=== PATIENT | female | born 1950 | race Caucasian/White ===

== ENCOUNTER 2020-07-21 11:06 | Emergency (ER) | payer OTHER ==
[~2020-07-21] VITALS: Ht 160 cm; Wt 77.1 kg
[2020-07-21] MEDS ORDERED: LISINOPRIL20 MG PO (11:15)
[2020-07-21 11:25] LABS: ABSOLUTE BASOPHILS 0.1 thou/uL (0.0-0.2); ABSOLUTE EOSINOPHILS 0.1 thou/uL (0.0-0.7); ABSOLUTE LYMPHOCYTES 2.3 thou/uL (0.8-5.3); ABSOLUTE MONOCYTES 0.5 thou/uL (0.0-1.2); ABSOLUTE NEUTROPHILS 4.6 thou/uL (1.6-8.1); BASOPHILS 0.8 %; EOSINOPHILS 1.2 %; HEMATOCRIT 42.9 % (37.0-47.0); HEMOGLOBIN 14.5 gm/dL (12.0-15.0); LYMPHOCYTES 30.9 %; MCH 30.9 pg (26.0-34.0); MCHC 33.7 g/dL (28.0-37.0); MCV 91.9 fL (80.0-100.0); MONOCYTES 6.9 %; MPV 8.4 fl. (7.2-11.1); NUCLEATED RBCS 0 /100WBC; PLATELET COUNT* 278 thou/uL (150-400); POLYS 60.2 %; RBC 4.67 mil/uL (4.20-5.00); RDW-CV 13.9 % (10.5-14.5); WBC 7.6 thou/uL (4.0-11.0)
[2020-07-21 11:34] LABS: CALCIUM 9.6 mg/dL (8.5-10.1); CREATININE 0.8 mg/dL (0.6-1.3); POTASSIUM 4.4 mmol/L (3.5-5.1)
[2020-07-21 11:38] LABS: ALBUMIN 3.8 g/dL (3.4-5.0); TOTAL BILIRUBIN 0.4 mg/dL (<0.1-1.0); TOTAL PROTEIN 7.9 g/dL (6.4-8.2)
[2020-07-21 11:39] LABS: APTT 26.1 Seconds (25.0-31.3); PROTIME 10.2 Seconds (9.20-11.50)
[2020-07-21 13:04] VITALS: BP 124/69
--- NOTE | 2020-07-21 16:13 | EKG ---
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 07/21/20 1613 1112 1112 Nilay Truong MD, [facility] /EPI
== END 2020-07-21 13:05 | disposition home or self-care (01) ==
LOC: M.ERS 11:06
PROVIDERS: Family Medicine
DX: R20.2 Paresthesia of skin (principal); Z88.1 Allergy status to other antibiotic agents; Z90.710 Acquired absence of both cervix and uterus; Z79.899 Other long term (current) drug therapy

== ENCOUNTER 2020-08-03 14:08 | Inpatient (IN) | payer OTHER ==
[~2020-08-03] VITALS: Ht 160 cm; Wt 77.0 kg
--- NOTE | ~2020-08-03 | CON ---
[address] [address] CONSULTATION Name: JUANITO LIMON Room: [address] IN M.R.#: [id number] Admission: 08/03/20 Attend Phys: Garfield Gracia Discharge: Date of : 52 Report #: [id number] THIS REPORT FOR: cc: Dayana Adorno MD, Lin W. MD Khosla, Parveen K. MD ~ DOC #: [id number] Sin Davalos MD DATE OF CONSULTATION: 08/03/2020 HISTORY OF PRESENT ILLNESS: This is a 69-year-old female patient, whose records were reviewed, and I talked to the nurses. The patient has an unusual symptom, where she is having generalized weakness, which is more predominant on the right side. This started about 2 weeks ago. She does have some speech difficulty. She came to Emergency Room and a CT scan of the head was done that was interpreted as normal, but looking at the films, there may have been slight abnormality even at that time, and a CT scan was done today again that definitely showed a stroke in at least a left basal ganglion area and probably another one in the frontal area. She never had any stroke. She does have hypertension, she takes medication for that, is not sure how control her hypertension is. REVIEW OF SYSTEMS: Positive for hypertension. She has a strong family history of atherosclerotic disease with sisters having endarterectomy and a brother having myocardial infarction. She does have some hypothyroidism. She is not complaining of any new eye, ENT, cardiac, respiratory, GI, , musculoskeletal, constitutional, dermatological, hematological, psychiatric, throat, allergic symptom associated with present symptomatology. PAST MEDICAL HISTORY: Negative for stroke. FAMILY HISTORY: Strongly positive for atherosclerotic disease. SOCIAL HISTORY: She does not smoke or drink any alcohol. PHYSICAL EXAMINATION: NEUROLOGIC: The patient's examination indicates that she is alert, responsive. Her speech is slurred, but she is able to express herself and her comprehension is intact. Cranial nerve examination 2-12 looks unremarkable. There is not any prominent facial palsy, but mild facial palsy may be there. She is slightly weak on the right side as compared to the left side, but her sensation looks intact, like position sense, she does think touch feels different. Tone looks symmetrical. The patient is able to ambulate, but she feels weak. Hearing and vision are adequate. EXTREMITIES: Her pulses are palpable. She has no edema, [place] [address] CONSULTATION Name: JUANITO LIMON Room: [address]#: [id number] Admission: 08/03/20 Attend Phys: Garfield Gracia Discharge: Date of : 52 Report #: [id number] CARDIAC: Examination appears unremarkable. PULMONARY: No respiratory difficulty was noticed. GENERAL: She is a reasonably well-developed individual. VITAL SIGNS: Last blood pressure is 145/79, pulse is 79, temperature is 98.6. LABORATORY DATA: Indicates a normal white count and a normal platelet count. MEDICATIONS: She tells me she was not taking any Plavix at home, but she was taking aspirin at home, which was a baby aspirin. IMAGING STUDIES: A CT was reviewed and I reviewed the films and the report is summarized as above. IMPRESSION: The patient's clinical presentation is consistent with a left hemispheric cerebrovascular accident. This happened 2 weeks ago, so she is not an intervention candidate. I got a CT angio report after talking to her the indication, potential complication and alternative. That films and the reports are not available. RECOMMENDATIONS: 1. I discussed with her that we will be starting her on a combination of aspirin and Plavix. 2. We will await the result of CT angio. 3. I will give her some fluid until the CT angio report becomes available. 4. I will suggest permissive hypertension for the time being. 5. Closely watch her for any deterioration because these lacunar CVAs sometime continue to deteriorate in spite of treatment. All of it was discussed with the patient in detail. Thank you very much for this referral. We will follow the patient along with you. MD TANIA Lam/MANUEL By: [id number] Davalos MD /nt
[~2020-08-03 14:08] MED LIST: LISINOPRIL20 MG PO
[2020-08-03 14:15] VITALS: BP 141/91
[2020-08-03 15:06] LABS: URINE BILIRUBIN NEGATIVE (Negative); URINE BLOOD NEGATIVE (Negative); URINE CLARITY CLEAR; URINE COLOR YELLOW; URINE GLUCOSE-RANDOM NEGATIVE (Negative); URINE KETONES NEGATIVE (Negative); URINE NITRITE-REFLEX NEGATIVE (Negative); URINE PROTEIN NEGATIVE (Negative); URINE SPECIFIC GRAVITY 1.015 (1.005-1.030); URINE UROBILINOGEN 0.2 E.U./dl (0.2-1.0)
[2020-08-03 15:08] LABS: URINE LEUKOCYTES-REFLEX 2+ (Negative)
[2020-08-03 15:17] LABS: BACTERIA-REFLEX 1-9 Few /HPF (None Seen); CASTS None Seen /LPF (None Seen); CRYSTALS None Seen /LPF (None Seen); MUCUS None Seen strn/LPF (None Seen); SQUAMOUS >10 Many /LPF (0-3); URINE WBC-REFLEX 6-15 Few /HPF (0-5)
[2020-08-03 15:18] LABS: ABSOLUTE EOSINOPHILS 0.1 thou/uL (0.0-0.7); ABSOLUTE LYMPHOCYTES 2.3 thou/uL (0.8-5.3); ABSOLUTE MONOCYTES 0.5 thou/uL (0.0-1.2); ABSOLUTE NEUTROPHILS 5.6 thou/uL (1.6-8.1); BASOPHILS 0.5 %; EOSINOPHILS 1.5 %; HEMATOCRIT 46.4 % (37.0-47.0); HEMOGLOBIN 15.3 gm/dL (12.0-15.0); LYMPHOCYTES 27.2 %; MCH 30.6 pg (26.0-34.0); MCHC 33.1 g/dL (28.0-37.0); MCV 92.5 fL (80.0-100.0); MONOCYTES 5.9 %; MPV 8.1 fl. (7.2-11.1); NUCLEATED RBCS 0 /100WBC; PLATELET COUNT* 319 thou/uL (150-400); POLYS 64.9 %; RBC 5.01 mil/uL (4.20-5.00); RDW-CV 14.1 % (10.5-14.5); WBC 8.6 thou/uL (4.0-11.0)
[2020-08-03 15:18] LABS: URINE RBC None Seen /HPF (0-2)
[2020-08-03 15:28] LABS: CALCIUM 9.5 mg/dL (8.5-10.1); CREATININE 0.8 mg/dL (0.6-1.3); POTASSIUM 4.4 mmol/L (3.5-5.1)
[2020-08-03 15:38] LABS: ALBUMIN 3.9 g/dL (3.4-5.0); TOTAL BILIRUBIN 0.3 mg/dL (<0.1-1.0); TOTAL PROTEIN 7.9 g/dL (6.4-8.2)
[2020-08-03] MEDS ORDERED: LEVO-T50 MCG PO (15:53)
[2020-08-03] MEDS ORDERED: DORZOLAMIDE-TI1 EACH EA. EYE (15:54)
[2020-08-03] MEDS ORDERED: LUMIGAN2.5 M1 EA. EYE (15:55)
[2020-08-03] MEDS ORDERED: OMEGA-3 FISH1200 MG PO (15:55)
[2020-08-03] MEDS ORDERED: GLUCOSAMINE CH1 EA10 PO (15:56)
[2020-08-03] MEDS ORDERED: NATURAL LUTEIN20 MG PO (15:57)
[2020-08-03] MEDS ORDERED: CALCIUM CITRAT250 MG PO (15:57)
[2020-08-03] MEDS ORDERED: MAGNESIUM250 M1 PO (15:57)
[2020-08-03] MEDS ORDERED: CO Q-10200 MG PO (15:58)
[2020-08-03] MEDS ORDERED: CRANBERRY500 M2 PO (15:58)
[2020-08-03] MEDS ORDERED: D3-200050 MCG PO (15:59)
[2020-08-03 18:04] VITALS: BP 164/101
[2020-08-03 18:55] VITALS: BP 145/79
[2020-08-03 20:01] VITALS: BP 133/67
[2020-08-04 01:12] VITALS: BP 101/57
[2020-08-04 05:21] LABS: ALBUMIN 3.5 g/dL (3.4-5.0); ALKALINE PHOSPHATASE 56 U/L (46-116); ANION GAP 10 mmol/L (7-16); BUN 12 mg/dL (7-18); CALCIUM 9.3 mg/dL (8.5-10.1); CHLORIDE 104 mmol/L (98-107); CHOLESTEROL 230 mg/dL (<200); CO2 25 mmol/L (21-32); CREATININE 0.7 mg/dL (0.6-1.3); GLUCOSE 77 mg/dL (70-99); HDL CHOLESTEROL 42 mg/dL (>40); LDL CHOLESTEROL 173 mg/dL (<100); POTASSIUM 3.7 mmol/L (3.5-5.1); SGOT 12 U/L (15-37); SGPT 32 U/L (30-65); SODIUM 139 mmol/L (136-145); TC:HDL 5.5 Ratio (Not establshd); TOTAL BILIRUBIN 0.2 mg/dL (<0.1-1.0); TRIGLYCERIDE 75 mg/dL (<150); VLDL 15 mg/dL (<40)
[2020-08-04 05:24] LABS: SERUM ASSESSMENT CLEAR
[2020-08-04 05:51] VITALS: BP 133/86
[2020-08-04 08:10] VITALS: BP 121/72
[2020-08-04 11:52] VITALS: BP 136/77
--- NOTE | 2020-08-04 12:09 | EKG ---
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: : 1950 Requested By: Pj Armstrong Order Number: [id number] MD: Nikhil Tan Measurements Intervals [place] Rate: 70 P: -4 NV: 171 QRS: -28 QRSD: 84 T: 39 QT: 379 QTc: 409 Interpretive Statements Sinus rhythm Consider right atrial enlargement Abnormal R-wave progression, early transition Inferior infarct, old Compared to ECG 07/21/2020 11:12:31 Myocardial infarct finding now present Electronically Signed On 08-04-2020 12:09:36 CDT by Nikhil Tan [email or web address] <ELECTRONICALLY SIGNED> By: Nikhil Tan MD, FACC 08/04/20 1209 1437 1437 Nikhil Tan MD, FACC /EPI
--- NOTE | 2020-08-04 15:52 | 2DMMODE ---
[place] [address] 2 D/M-MODE ECHOCARDIOGRAM Name: JUANITO LIMON Room: [address] Sky#: [id number] Admission: 08/03/20 Attend Phys: Neeraj Dover Discharge: Date of : 52 Date of Service: 08/04/20 1552 Report #: [id number] THIS REPORT FOR: cc: Dayana Adorno MD, Lin W. MD Liston, Michael J. MD [facility]ED WITH [facility] ~ APPROVED REPORT Study performed: 08/04/2020 10:56:37 EXAM: Comprehensive 2D, Doppler, and color-flow Echocardiogram Patient Location: In-Patient Room #: [facility] Status: routine BSA: 1.80 HR: 76 bpm BP: 133/86 mmHg Rhythm: NSR Other Information Study Quality: Good Indications CVA/TIA Echo Enhancing Agent Indication: Rule out Shunt Agent(s) / Amount(s) Used: Agitated Saline 10 cc 2D Dimensions IVSd: 8.49 (7-11mm) LVOT Diam: 19.47 (18-24mm) LVDd: 37.78 mm PWd: 8.50 (7-11mm) Ascending Ao: 28.75 (22-36mm) LVDs: 17.68 (25-40mm) Aortic Root: 32.52 mm Volumes Left Atrial Volume (Systole) LA ESV Index: 24.40 mL/m2 Aortic Valve AoV Peak Flash.: 1.69 m/s AO Peak Gr.: 11.38 mmHg LVOT Max P.57 mmHg AO Mean Gr.: 5.78 mmHg LVOT Mean P.16 [place] [address] 2 D/M-MODE ECHOCARDIOGRAM Name: JUANITO LIMON Room: [address] MEstevanREstevan#: [id number] Admission: 08/03/20 Attend Phys: Neeraj Dover Discharge: Date of : 52 Date of Service: 08/04/20 1552 Report #: [id number] LVOT Max V: 1.46 m/s AO V2 VTI: 29.07 cm LVOT Mean V: 0.93 m/s TANIA (VTI): 3.01 cm2 LVOT V1 VTI: 29.36 cm Mitral Valve E/A Ratio: 0.88 MV Decel. Time: 231.02 ms MV E Max Flash.: 0.71 m/s MV PHT: 67.00 ms MVA (PHT): 3.28 cm2 TDI E/Lateral E': 7.89 E/Medial E': 7.89 Medial E' Flash.: 0.09 m/s Lateral E' Flash.: 0.09 m/s Pulmonary Valve PV Peak Flash.: 1.15 m/s PV Peak Gr.: 5.25 mmHg Tricuspid Valve RAP Estimate: 5.00 mmHg TR Peak Gr.: 20.52 mmHg RVSP: 25.00 mmHg PA Pressure: 25.00 mmHg Left Ventricle The left ventricle is normal size. There is normal LV segmental wall motion. There is normal left ventricular wall thickness. Left ventricular systolic function is normal. LVEF is 65-70%. Grade I - abnormal relaxation pattern. Right Ventricle The right ventricle is normal size. The right ventricular systolic function is normal. Atria The left atrium size is normal. Interatrial septum is intact without evidence of ASD or PFO. The right atrium size is normal. Aortic Valve Mild aortic valve sclerosis. No aortic regurgitation is present. There is no aortic valvular stenosis. Mitral Valve The mitral valve is normal in structure. There is no mitral valve regurgitation noted. No evidence [place] [address] 2 D/M-MODE ECHOCARDIOGRAM Name: JUANITO LIMON Room: [address]R.#: [id number] Admission: 08/03/20 Attend Phys: Neeraj Dover Discharge: Date of : 52 Date of Service: 08/04/20 1552 Report #: [id number] Tricuspid Valve The tricuspid valve is normal in structure. Mild tricuspid regurgitation. No pulmonary hypertension. Pulmonic Valve The pulmonary valve is normal in structure. There is no pulmonic valvular regurgitation. Great Vessels The aortic root is normal in size. IVC is normal in size and collapses >50% with inspiration. Pericardium There is no pericardial effusion. <Conclusion> The left ventricle is normal size. There is normal left ventricular wall thickness. Left ventricular systolic function is normal. LVEF is 65-70%. Grade I - abnormal relaxation pattern. Interatrial septum is intact without evidence of ASD or PFO. Mild aortic valve sclerosis. Mild tricuspid regurgitation. No pulmonary hypertension. IVC is normal in size and collapses >50% with inspiration. <ELECTRONICALLY SIGNED> By: Nikhil Tan MD, FACC 08/04/20 1552 155 155 Nikhil Tan MD, FACC /INF
[2020-08-04 16:35] VITALS: BP 194/93
[2020-08-04 20:00] VITALS: BP 160/81
[2020-08-05] VITALS: BP 165/89
[2020-08-05 00:40] LABS: HEMATOCRIT 41.9 % (37.0-47.0); HEMOGLOBIN 14.3 gm/dL (12.0-15.0); MCH 31.5 pg (26.0-34.0); MCHC 34.2 g/dL (28.0-37.0); MCV 92.2 fL (80.0-100.0); MPV 8.3 fl. (7.2-11.1); RBC 4.54 mil/uL (4.20-5.00); WBC 8.8 thou/uL (4.0-11.0)
[2020-08-05 00:49] LABS: CALCIUM 9.4 mg/dL (8.5-10.1); CREATININE 0.6 mg/dL (0.6-1.3)
[2020-08-05 02:06] LABS: GLYCOHEMOGLOBIN (HGB A1C) 5.5 % (4.8-5.6)
[2020-08-05 04:00] VITALS: BP 137/76
[2020-08-05 07:30] VITALS: BP 168/83
[2020-08-05] MEDS ORDERED: CLOPIDOGREL75 MG PO (10:14)
[2020-08-05] MEDS ORDERED: ATORVASTATIN CA80 MG PO (10:15)
[2020-08-05 10:44] VITALS: BP 168/83
[2020-08-05 11:46] VITALS: BP 155/78
[2020-08-05 13:39] VITALS: BP 168/83
--- NOTE | 2020-08-05 16:00 | CON ---
[address] [address] CONSULTATION Name: JUANITO LIMON Room: [address] Jamilah Swanson#: [id number] Admission: 08/03/20 Attend Phys: Garfield Gracia Discharge: 08/05/20 Date of : 52 Report #: [id number] THIS REPORT FOR: cc: Dayana Adorno MD, Lin W. MD Blick, David R. MD [facility] ~ DOC #: [id number] cc: MD Nilay Box MD [facility] DATE OF CONSULTATION: 08/05/2020 HISTORY OF PRESENT ILLNESS: The patient is a 69-year-old white female who I was asked to see in the hospital today after she is noted to have an abnormal ECG. The patient has no previous history of heart disease. She does not exercise on a regular basis. She has had no previous cardiac evaluation. She was doing well until 2 weeks ago, she felt some clumsiness of her right arm and leg and some numbness. She actually came to the emergency room here at [facility], evaluated and sent home. Since that time, she continues to have some weakness of the arm and leg. She has felt very weak. She finally came to the emergency room 2 days ago and was admitted for further evaluation and treatment. She denies any blurred vision, difficulty swallowing. She did have some numbness of the right side of her face. She denies a history of chest pain, shortness of breath, palpitations, syncope, peripheral edema. She has no history of heart murmur. PAST MEDICAL HISTORY: She has had a hysterectomy. She has a history of hypertension. No history of diabetes or hyperlipidemia. MEDICATIONS: On admission include lisinopril. ALLERGIES: SHE HAS INTOLERANCE TO AMOXICILLIN. FAMILY HISTORY: Her mother and sister have had carotid endarterectomy. Her brother had coronary bypass surgery. Mother and father both had pacemakers. SOCIAL HISTORY: She is . She and her live in [place]. 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 No smoking, alcohol abuse. REVIEW OF SYSTEMS: No history of asthma, liver disease, kidney disease, cancer, psychiatric illness, chronic skin condition. PHYSICAL EXAMINATION: GENERAL: Revealed a middle-aged female, lying in bed. [place] [address] CONSULTATION Name: JUANITO LIMON Room: [address] Jamilah Swanson#: [id number] Admission: 08/03/20 Attend Phys: Garfield Gracia Discharge: 08/05/20 Date of : 52 Report #: [id number] VITAL SIGNS: She had a blood pressure of 130/80, pulse 70. She is afebrile. HEENT: She was anicteric. Conjunctivae pink. Mucosa is moist. NECK: Veins not distended. No carotid bruits. Neck is supple. CHEST: Clear to auscultation. CARDIAC: Regular rate and rhythm without murmur. ABDOMEN: Soft. EXTREMITIES: Had no edema. Dorsalis pedis pulse 3+ bilaterally. SKIN: Cool and dry. NEUROLOGIC: Nonfocal. LYMPHATIC: No adenopathy. PSYCHIATRIC: Mood is appropriate. RADIOLOGICAL DATA: Her ECG on admission showed a sinus rhythm with early transition. Her workup so far included a portable chest x-ray that showed normal heart size, clear lung vazquez. She had an MRI of the head without contrast that showed lacunar type infarction in the left posterior area. She had a CTA of the head and neck that showed no significant stenosis. LABORATORY DATA: Sodium 140, creatinine 0.6, glucose 80. Liver function studies were normal. Troponin 0.06. BNP 11. Cholesterol 230, triglycerides 75, HDL 42, LDL 173. Her white blood cell count 8.8, hemoglobin 14.3. Her COVID antigen stat test was negative. Urinalysis is negative for protein. IMPRESSION AND RECOMMENDATIONS: 1. Cerebral infarction. The patient has been seen by Neurology. 2. Hypertension. The patient is on MILLIE inhibitor. 3. Suspect heterozygous hypercholesterolemia, recommend a statin drug. 4. Snoring at night. Consider sleep apnea. Nilay Truong MD [facility] SELENE/LESLIE <ELECTRONICALLY SIGNED> By: Nilay Truong MD, [facility] 08/05/20 1600 0844 1038David Roman Truong MD, [facility] /nt
[2020-08-05 18:06] LABS: ANA INTERPRETATION Negative (())
== END 2020-08-05 13:45 | disposition home or self-care (01) | DRG 65 ==
LOC: M.ERS 14:08 → M.TBA-ER 17:20 → M.2W 17:20
PROVIDERS: Emergency Medicine Emergency Medical Services; Psychiatry & Neurology Neuromuscular Medicine; ADMIT Internal Medicine; ATTEND Internal Medicine
DX: I63.9 Cerebral infarction, unspecified (principal); E87.1 Hypo-osmolality and hyponatremia; G81.94 Hemiplegia, unspecified affecting left nondominant side; R06.83 Snoring; I10 Essential (primary) hypertension; E03.9 Hypothyroidism, unspecified; E78.5 Hyperlipidemia, unspecified; Z20.822 Contact with and (suspected) exposure to COVID-19; Z90.710 Acquired absence of both cervix and uterus; Z88.1 Allergy status to other antibiotic agents; Z82.49 Family history of ischemic heart disease and other diseases of the circulatory system; Z79.82 Long term (current) use of aspirin; Z79.899 Other long term (current) drug therapy

== ENCOUNTER → 2020-08-13 | Outpatient (CLI) | payer OTHER ==
[~2020-08-13] MED LIST changes: +ATORVASTATIN CA80 MG PO; +CALCIUM CITRAT250 MG PO; +CLOPIDOGREL75 MG PO; +CO Q-10200 MG PO; +CRANBERRY500 M2 PO; +D3-200050 MCG PO; +DORZOLAMIDE-TI1 EACH EA. EYE; +GLUCOSAMINE CH1 EA10 PO; +LEVO-T50 MCG PO; +LUMIGAN2.5 M1 EA. EYE; +MAGNESIUM250 M1 PO; +NATURAL LUTEIN20 MG PO; +OMEGA-3 FISH1200 MG PO
== END ==
LOC: M.CT 09:27
PROVIDERS: ATTEND Internal Medicine Cardiovascular Disease
DX: Z13.6 Encounter for screening for cardiovascular disorders (principal)